=== PATIENT | male | born 1990 | race African-American/Black ===

== ENCOUNTER 2018-03-02 21:16 | Emergency (ER) | payer MEDICAID ==
[2018-03-02 21:28] VITALS: BP 128/96
--- NOTE | 2018-03-02 22:45 | XRAY Preliminary Report ---
Exam: XR ANKLE 3 VIEW LT IMPRESSION: No acute osseous abnormality demonstrated. [facility] SITE ID: [id number]
--- NOTE | 2018-03-02 22:45 | XRAY Preliminary Report ---
Exam: XR FOOT 3 VIEW LT IMPRESSION: No acute osseous abnormality demonstrated. [facility] SITE ID: [id number]
--- NOTE | 2018-03-02 22:45 | XRAY Report ---
EXAMS: LEFT FOOT AND ANKLE RADIOGRAPHY EXAM DATE: 03/02/2018 10:24 PM. CLINICAL HISTORY: Fall, left-sided ankle and foot pain, injury while playing basketball, COMPARISON: No priors. TECHNIQUE: 3 views each foot and ankle. FINDINGS: Bones: No acute displaced fractures or bone lesions in the foot or ankle. Joints: Ankle mortise appears intact on these nonstressed images. No dislocation evident within the foot. Soft Tissues: No significant soft tissue swelling. IMPRESSION: No acute osseous abnormality demonstrated. [facility] Referring Provider Line: [phone] SITE ID: [id number]
--- NOTE | 2018-03-02 22:45 | XRAY Report ---
EXAMS: LEFT FOOT AND ANKLE RADIOGRAPHY EXAM DATE: 03/02/2018 10:24 PM. CLINICAL HISTORY: Fall, left-sided ankle and foot pain, injury while playing basketball, COMPARISON: No priors. TECHNIQUE: 3 views each foot and ankle. FINDINGS: Bones: No acute displaced fractures or bone lesions in the foot or ankle. Joints: Ankle mortise appears intact on these nonstressed images. No dislocation evident within the foot. Soft Tissues: No significant soft tissue swelling. IMPRESSION: No acute osseous abnormality demonstrated. [facility] Referring Provider Line: [phone] SITE ID: [id number]
--- NOTE | 2018-03-02 23:05 | ED Physician Documentation ---
PD HPI LOWER EXT INJURY - Stated complaint Stated Complaint: LEFT FOOT PAIN - Chief complaint Chief Complaint: Ext Problem - History obtained from History obtained from: Patient - History of Present Illness PD HPI LOW EXT INJURY LOCATION: Left, Foot Type of injury: Fall, Twist Where injury occurred: Other (playing basketball) Timing - onset: Today Timing - duration: Hours (1) Timing - details: Abrupt onset Pain level max: 5 Pain level now: 4 Improved by: Rest, Ice Worsened by: Moving, Palpating Associated symptoms: No: Weakness, Numbness, Tingling, Swelling Similar symptoms before: Has not had sx before Recently seen: Not recently seen - Additional information Additional information: Patient is a 27-year-old male who was playing basketball and felt a pain in the back of his ankle in the posterior calf. Now having difficulty walking. Review of Systems Constitutional: denies: Fever, Chills GI: denies: Vomiting Neurologic: denies: Focal weakness, Numbness, Headache PD PAST MEDICAL HISTORY - Past Medical History Past Medical History: No - Past Surgical History Past Surgical History: No - Allergies Allergies/Adverse Reactions: Allergies Allergy/AdvReac Type Severity Reaction Status Date / Time No Known Drug Allergies Allergy Verified 03/02/18 21:27 - Social History Does the pt smoke?: No Smoking Status: Former smoker Does the pt drink ETOH?: No Does the pt have substance abuse?: No - Immunizations Immunizations are current?: Yes - POLST Patient has POLST: No PD ED PE NORMAL - Vitals Vital signs reviewed: Yes - General General: Alert and oriented X 3 - HEENT HEENT: Moist mucous membranes - Neck Neck: Supple, no meningeal sign - Cardiac Cardiac: RRR - Respiratory Respiratory: No respiratory distress, Clear bilaterally - Derm Derm: Warm and dry - Extremities Extremities: Other (L foot/ankle - No significant bony tenderness over the ankle or foot, however he is having some discomfort over the medial malleolus as well as the dorsal aspect of the foot. Neurovascularly intact. Achilles tendon feels soft. There is no plantar flexion of the foot with the Diaz's test.) - Neuro Neuro: Alert and oriented X 3 - Psych Psych: Normal mood, Normal affect Results - Vitals Vitals: Vital Signs - 24 hr 03/02/18 21:25 Temperature 36.8 C Heart Rate 78 Respiratory 16 Rate Blood Pressure 128/96 H O2 Saturation 100 Oxygen O2 Source Room air - Rads (name of study) Left foot x-ray Radiology: Prelim report reviewed, EMP read contemporaneously, See rad report ( No acute bony abnormality) Left ankle x-ray Radiology: Prelim report reviewed, EMP read contemporaneously, See rad report ( No acute bony abnormality) PD MEDICAL DECISION MAKING - ED course Complexity details: reviewed results, re-evaluated patient, considered differential, d/w patient, d/w family ED course: Patient is a 27-year-old male who presents to the emergency department with what appears to be a rupture of the left Achilles tendon. No acute findings on x-ray. Placed in a walking boot and on crutches. Declines pain medication here for home. Will refer to orthopedics for follow-up. Patient counseled regarding signs and symptoms for which I believe and urgent re-evaluation would be necessary. Patient with good understanding of and agreement to plan and is comfortable going home at this time This document was made in part using voice recognition software. While efforts are made to proofread this document, sound alike and grammatical errors may occur. Departure - Departure Disposition: 01 Home, Self Care Clinical Impression: Achilles tendon rupture Qualifiers: Encounter type: initial encounter Laterality: left Qualified Code(s): S86.012A - Strain of left Achilles tendon, initial encounter Condition: Good Instructions: ED Tendon Rupture Achilles Follow-Up: [facility] [Provider Group] - Within 1 week Comments: Follow-up with orthopedics for further evaluation. Return if you worsen. You may use Motrin and Tylenol as needed for pain. Remain in the walking boot until released by orthopedics. It does appear that you have ruptured your Achilles tendon. Discharge Date/Time: 03/03/18 00:11
== END 2018-03-03 00:11 | disposition home or self-care (01) ==
LOC: ED 21:16
DX: S86.012A Strain of left Achilles tendon, initial encounter (principal); X50.1XXA Overexertion from prolonged static or awkward postures, initial encounter; Y93.67 Activity, basketball; Y92.310 Basketball court as the place of occurrence of the external cause; Z87.891 Personal history of nicotine dependence
CPT/HCPCS: 99283

== ENCOUNTER 2018-03-14 07:48 | Outpatient (CLI) | payer MEDICAID ==
--- NOTE | 2018-03-14 12:40 | MRI Report ---
EXAM: LEFT ANKLE/HINDFOOT MRI WITHOUT CONTRAST EXAM DATE: 03/14/2018 08:51 AM. CLINICAL HISTORY: SPONTANEOUS RUPTURE OF ACHILLES Tendon, left. COMPARISON: Radiographs 03/02/2018. TECHNIQUE: Multiplanar, multisequence T1-weighted and fluid-sensitive sequences of the ankle/hindfoot without contrast. Other: None. FINDINGS: Bones and articular surfaces: No significant ankle joint effusion. No osteochondral lesions. No fract ure identified. Marrow signal within normal limits. Musculotendinous structures: Complete rupture of the Achilles tendon located approximately 7 cm above the calcaneal insertion. Extensive soft tissue thickening and edema involving the soleus distal musc ulotendinous junction. 2.5 x 1.0 x 1.5 cm fluid signal defect within the substance of the distal sole us musculotendinous junction. Moderate patchy thickening and edema involving the entire distal Achill es tendon to just above the intact Achilles tendon insertion. The remaining anterior, posterior and p osterior lateral ankle tendons appear intact. Ligaments: Some thinning and ill-definition involving upper fibers of the anterior talofibular ligame nt. The calcaneofibular and posterior talofibular ligament appear intact. Components of the deltoid l igament appear intact. IMPRESSION: 1. Full-thickness tear of the Achilles tendon approximately 7 cm above the calcaneal insertion. [facility] MUSCULOSKELETAL RADIOLOGY SECTION Referring Provider Line: [phone] SITE ID: [id number]
== END 2018-03-14 07:49 | disposition home or self-care (01) ==
LOC: DI 07:48
PROVIDERS: ATTEND Orthopaedic Surgery
DX: M66.372 Spontaneous rupture of flexor tendons, left ankle and foot (principal)